=== PATIENT | female | born 1970 | race Caucasian/White ===

== ENCOUNTER 2019-10-17 18:35 | Outpatient (CLI) | payer BC, SELFPAY ==
--- NOTE | ~2019-10-17 | XR_ITS ---
EXAMINATION: XR chest 2V EXAM DATE: 10/17/2019 18:57 INDICATION: Cough. TECHNIQUE: Frontal and lateral projections of the chest obtained and reviewed. There is no prior ber[place] dy for comparison. FINDINGS: The lungs are clear. There are no pleural effusions. The cardiomediastinal silhouette is within normal limits. There is no pneumothorax suspected. The bones and soft tissues are unremarkab le. IMPRESSION: No acute cardiopulmonary findings. Reviewed, dictated and finalized at location A.
== END 2019-10-17 18:36 | disposition home or self-care (01) ==
PROVIDERS: PCP Family Medicine; Visit Provider Physician Assistant
DX: R05 Cough (principal)
CPT/HCPCS: 71046

== ENCOUNTER 2019-12-23 13:42 | Outpatient (CLI) | payer BC, SELFPAY ==
--- NOTE | ~2019-12-23 | MM_ITS ---
MM diag tal implant BI w hollis DATE: 12/23/2019 14:59 INDICATION: Implant rupture TECHNIQUE: Digital ML, MLO and cc Tomosynthesis with composite 2-D views. Implant and implant displac ed views were performed. COMPARISON: None FINDINGS: There are scattered areas of fibroglandular density. Ruptured collapsed right breast implant. Left implant appears unremarkable. No suspicious mass or architectural distortion, malignant calcification, skin thickening or retractio n is detected. IMPRESSION: BI-RADS Category 2: benign: Benign finding Ruptured right breast implant Recommendation: Routine mammographic screening Reviewed, dictated and finalized at Location [facility]. Reviewed, dictated and finalized at location A.
== END 2019-12-23 13:43 | disposition home or self-care (01) ==
LOC: ANHIMG 13:44
PROVIDERS: PCP Family Medicine; Visit Provider Physician Assistant
DX: T85.43XA Leakage of breast prosthesis and implant, initial encounter (principal)
CPT/HCPCS: 77062; 77066; G0279

== ENCOUNTER 2020-02-28 01:18 | Outpatient (CLI) | payer BC, SELFPAY ==
[2020-02-28 18:36] LABS: SARS-CoV-2 RNA PCR Negative
== END 2020-02-28 01:19 | disposition home or self-care (01) ==
LOC: ANHCOVIDDT 01:18
PROVIDERS: Physician Assistant; PCP Family Medicine; Visit Provider Surgery Plastic and Reconstructive Surgery
DX: R05 Cough (principal); Z20.828 Contact with and (suspected) exposure to other viral communicable diseases
CPT/HCPCS: 87635; C9803; U0003

== ENCOUNTER 2020-03-01 08:39 | Day surgery (SDC) | payer OTHER, SELFPAY ==
[2020-02-20 12:58] VITALS: BMI 22.4
[2020-03-01] VITALS (8 sets, daily range): BP systolic 99–123; BP diastolic 49–75; PULSE 60–79; RESP 12–20; TEMP 35.8–36.5; O2SAT 93–100; BMI 22.2
[2020-03-01] MEDS: LACTATED RINGERS 1,000 ML 30 ML IV CONT ×2 (09:23→11:54)
--- NOTE | 2020-03-01 09:57 | WPDHPUPDATE1 ---
History and Physical Update Update Date/Time: 03/01/20 09:57 History and Physical has been reviewed, including an updated exam of the patient. There are NO changes in the patient's condition. Risks, benefits, and alternatives have been discussed and questions answered. Patient agrees to proceed with procedure.
--- NOTE | 2020-03-01 10:13 | PM.PROC ---
Procedure Note - Detailed Date of procedure: 03/01/20 Pre-op diagnosis: Breast Implant Rupture Post-op diagnosis: same Procedure performed: Bilateral breast implant exchange Description of procedure: She is here today for bilateral breast implant exchange. Previously and again today the risks, benefits, alternatives were discussed in extensive detail. I wanted her to be very realistic about the risks involved as well as expectations. We discussed aftercare and what to monitor for. Made sure answered all of her questions to her satisfaction today and consent was obtained. Marked in the preoperative holding area with their verification. The patient was taken to the operating room placed supine on the operating table. Anesthesia was provided by anesthesiology. A surgical time-out was taken. We cleansed the skin and 1% lidocaine and 0.25% Marcaine with epinephrine was used anesthetize as a field block. She was prepped and draped in a standard sterile fashion. Tegaderm nipple Goddard were placed. A 15 blade used to make an incision excising the previous IMF scar. Dissection was continued until the implant was identified. implant was removed. I completed capsulotomy as appropriate. I elevated superficial to the pectoralis major in a dual plane 3 fashion to help with the degree of waterfall deformity she has. She declined a formalized mastopexy. She understands she will still have residual waterfall deformity. Her implants were 425cc saline. Submuscular with no release of inferior border of pectoralis major. Her capsule was very thin and densly adherent to chest wall / pec major. Nothing of concern. No masses. No seroma. Because she was happy with appereance I did not release the pectoralis major. Because her capsule was so thin / adherent to surrounding tissue removal would have required significant injury to pectoralis major / chest wall so it remained in place and I cauterized. I then copiously irrigated with 3 liters of saline solution on TUR tubing and verified a strict hemostasis. Next the use a triple antibiotic and Betadine containing solution to irrigate the pocket. I washed my gloves with the triple antibiotic and Betadine solution. We washed the implant immediately upon opening it with this solution and only opened it when we needed it. Air was removed from the implant which was introduced to the pocket and filled with a saline fill kit. The implant was introduced into the pocket using the funnel. Having verified positioning of the implant this was closed using 2-0 Vicryl followed by 3-0 Monocryl in a running subcuticular 4-0 Monocryl followed by tissue glue. Fluffs, Phani wrap, and surgical bra were placed. Patient was awoke and taken to PACU without difficulty. All instrument sponge counts were correct at the end of the case. Anesthesia: GLMA Surgeon: Ming Amaya MD Estimated blood loss (mL): 5 Drains: No Packing: No Pathology: none sent Complications: No immediate complications Condition: stable Disposition: PACU Findings: Sline 450cc filled to 475c bilatearl. Right REF# [id number] SN [id number] Left REF # [id number] SN [id number]
--- NOTE | 2020-03-01 10:24 | WPDANESEPPF ---
Anes - Initial Pre Proc Eval Procedure: Operation Date: 03/01/20 10:00 Proposed Procedures p Bilateral Breast Implant Exchange - Ming Amaya MD Date/Time: 03/01/20 10:24 Surgeon: Ming Amaya MD Pre Op Diagnosis: Breast Implant Rupture Patient Data Age: 50 Gender: F Height: 5 ft 9 in Weight: 68.3 kg Last Vital Signs Temp 35.8 C L 03/01/20 08:57 Pulse 71 03/01/20 08:57 Resp 12 03/01/20 08:57 BP 114/75 03/01/20 08:57 Pulse Ox 100 03/01/20 08:57 Allergies Allergy/AdvReac Type Severity Reaction Status Date / Time No Known Allergies Allergy Unknown Verified 03/01/20 08:33 Patient hx anesthesia problems: post op nausea/vomiting Family hx anesthesia problems: none PMFSH Past Medical History Medical History Lupus Surgical History Surgical History History of breast augmentation History of cholecystectomy History of elbow surgery left History of hysterectomy History of lumpectomy benign History of partial thyroidectomy left History of repair of anterior cruciate ligament of right knee left History of shoulder surgery Family History Family History Father Acute myocardial infarction Other Family history of type 2 diabetes mellitus Social History Social History Smoking packs per day: 0.5 Smoking cigarettes per day: 10.0 Years smoked: 30 Smoking pack-years: 15.00 Smoking status: Current every day smoker Tobacco type: cigarettes Second hand tobacco smoke exposure: No Alcohol intake: never Substance use: never Substance use type: does not use Living arrangements: with family Gender identity (if verbalized by the patient): Female Sexual Orientation (if Verbalized by the Patient): Straight or Heterosexual Spiritual care concerns: No Anes - Eval Final PreProcedure Day of Procedure 03/01/20 10:24 Patient weight: normal Heart: regular rate and rhythm Lungs: decreased breath sounds Airway: Mallampati scale class II Neurological: alert and oriented Last oral intake: >/= 8 hours ASA classification: II Emergent: no Anesthetic plan: proceed Anesthesia type and monitoring: general LMA and standard monitoring Informed Consent: The patient's anesthetic plan and its attendant risks and benefits were discussed with the patient/family/POA. Questions were solicited and answers provided to the satisfaction of the patient/family/POA.
[2020-03-01] MEDS: ceFAZolin SODIUM 2 GM/20 ML SW SYRINGE IV PUSH (10:33)
[2020-03-01] MEDS: LIDO 1%/EPINEPHRINE 1:100,000 20 ML VIAL 30 ML INFILTRATE (11:02)
--- NOTE | 2020-03-22 07:31 | WPDANESPN ---
Anes - Prog Note Post-Op Date/Time: 03/22/20 07:31 Cardiovascular status: normal Respiratory status: normal Airway patency: baseline Mental status: baseline Post-Op hydration status: normal Vital Signs: Last Vital Signs Temp 36.5 C 03/01/20 11:54 Pulse 60 03/01/20 13:05 Resp 15 03/01/20 13:05 BP 112/74 03/01/20 13:05 Pulse Ox 98 03/01/20 13:05 Pain Score (VAS): 1 Patient Feedback: Patient satisfied with anesthetic care. Other Findings: late entry
== END 2020-03-01 13:33 | disposition home or self-care (01) ==
PROVIDERS: PCP Family Medicine; Visit Provider Surgery Plastic and Reconstructive Surgery
PROC: (CPT 19342; principal; 2020-03-01 10:00)
DX: T85.49XA Other mechanical complication of breast prosthesis and implant, initial encounter (principal)
CPT/HCPCS: 19370; 19340

== ENCOUNTER 2020-03-27 02:07 | Outpatient (CLI) | payer BC, SELFPAY ==
[2020-03-27 17:03] LABS: SARS-CoV-2 RNA PCR Negative
== END 2020-03-27 02:08 | disposition home or self-care (01) ==
LOC: ANHCOVIDDT 02:08
PROVIDERS: PCP Family Medicine; Visit Provider Plastic Surgery
DX: Z01.812 Encounter for preprocedural laboratory examination (principal); Z11.59 Encounter for screening for other viral diseases
CPT/HCPCS: 87635; C9803; U0003

== ENCOUNTER 2020-03-29 01:40 | Day surgery (SDC) | payer BC, SELFPAY ==
[2020-03-21 14:45] VITALS: BMI 22.1
[2020-03-29 10:08] VITALS: BP 111/74; PULSE 68; RESP 20; TEMP 36.3; O2SAT 100
--- NOTE | 2020-03-29 10:28 | WPDHPUPDATE1 ---
History and Physical Update Update Date/Time: 03/29/20 10:28 History and Physical has been reviewed, including an updated exam of the patient. There are NO changes in the patient's condition. Risks, benefits, and alternatives have been discussed and questions answered. Patient agrees to proceed with procedure.
--- NOTE | 2020-03-29 10:54 | P.PNAN_ITS ---
Anes - Initial Pre Proc Eval Procedure: Operation Date: 03/29/20 12:00 Proposed Procedures p Revision Right Trigger Thumb - Javad Mccormack MD Date/Time: 03/29/20 10:54 Surgeon: Javad Mccormack MD Pre Op Diagnosis: right trigger thumb Patient Data Age: 50 Gender: F Height: 5 ft 9 in Weight: 68.04 kg Allergies Allergy/AdvReac Type Severity Reaction Status Date / Time No Known Allergies Allergy Unknown Verified 03/21/20 14:45 Home Medications Medication Instructions Recorded Confirmed Type vitamin B complex [Super B-50 1 cap PO DAILY 03/21/20 03/21/20 History Complex] Patient hx anesthesia problems: none Family hx anesthesia problems: none PMFSH Past Medical History Medical History Lupus Tobacco use Surgical History Surgical History History of breast augmentation History of cholecystectomy History of elbow surgery left History of hysterectomy History of lumpectomy benign History of partial thyroidectomy left History of repair of anterior cruciate ligament of right knee left History of shoulder surgery Family History Family History Father Acute myocardial infarction Other Family history of type 2 diabetes mellitus Social History Social History Smoking packs per day: 0.5 Smoking cigarettes per day: 10.0 Years smoked: 20 Smoking pack-years: 10.00 Smoking status: Current every day smoker Tobacco type: cigarettes Second hand tobacco smoke exposure: No Alcohol intake: never Substance use: never Substance use type: does not use Gender identity (if verbalized by the patient): Female Spiritual care concerns: No Anes - Eval Final PreProcedure Day of Procedure 03/29/20 10:54 Patient weight: normal Heart: regular rate and rhythm Lungs: decreased breath sounds Airway: Mallampati scale class II Neurological: alert and oriented Last oral intake: >/= 8 hours ASA classification: III Emergent: no Anesthetic plan: proceed Anesthesia type and monitoring: general GIVS and standard monitoring Informed Consent: The patient's anesthetic plan and its attendant risks and benefits were discussed with the patient/family/POA. Questions were solicited and answers provided to the satisfaction of the patient/family/POA.
[2020-03-29] MEDS: LACTATED RINGERS 1,000 ML 30 ML IV CONT (10:55)
[2020-03-29] MEDS: LIDO 1%/EPINEPHRINE 1:100,000 20 ML VIAL 7 ML INFILTRATE (12:33)
[2020-03-29 13:00] VITALS: BP 94/55; PULSE 72; RESP 16; O2SAT 98
[2020-03-29 13:30] VITALS: BP 114/57; PULSE 60; RESP 16
[2020-03-29 14:00] VITALS: BP 109/65; PULSE 62; RESP 16
--- NOTE | 2020-03-30 17:16 | PM.PROC ---
Procedure Note - Detailed Date of procedure: 03/30/20 Pre-op diagnosis: right trigger thumb Post-op diagnosis: other (Post operative trigger finger adhesions.) Procedure performed: Exploration of prior trigger thumb with lysis of adhesions. Description of procedure: This patient presents today for exploration of the right trigger thumb site. This was operated several months ago and she has had difficulty ever sense. She does not continue to trigger but there is pain near the incision line she has not responded to therapy nor cortisone injections. The appropriate thumb was marked in the holding area. She was placed supine on the operating table. A time-out was held and confirmed. The extremity was prepped and draped in usual fashion. She was given IV sedation. The digit was blocked with 1% lidocaine with epinephrine. . The tourniquet was inflated to 250 mmHg. A transverse incision was made through the existing scar line. The skin flap was elevated distally and proximally exposing this area quite nicely. I did not find any point of insufficient release of the A1 colten. However the A1 colten had been fairly thick. We explored both digital nerves. Most of her pain and been over the ulnar digital nerve. We found two neurovascular structures on the ulnar side. Both of these were exposed and freed from surrounding scar. I could not discern whether they were nerve or artery They were left intact. We were able to see exposed flexor tendon. The tendon was smooth. There was no nodule. The tendon glided freely. A portion of the 2nd A1 colten sheath was excised. The point of that was to diminish the mass of tissue there. Following that the wound was irrigated and the skin closed with running 5 0 nylon. A small bandage with Coban wrap was applied and she was discharged from the operating room. She had no antibiotics. She has a prescription for hydrocodone . Surgeon: Javad Mccormack MD
== END 2020-03-29 14:30 | disposition home or self-care (01) ==
PROVIDERS: PCP Internal Medicine; Visit Provider Plastic Surgery
PROC: (CPT 26055; principal; 2020-03-29 12:00)
DX: M65.841 Other synovitis and tenosynovitis, right hand (principal); F17.210 Nicotine dependence, cigarettes, uncomplicated
CPT/HCPCS: 26055; A9270; J2250; J2704; J3010; J7120

== ENCOUNTER → 2020-08-28 06:51 | Outpatient (CLI) | payer BC, SELFPAY ==
[2020-08-28 22:50] LABS: SARS-CoV-2 RNA PCR Negative
== END ==
PROVIDERS: PCP Internal Medicine; Visit Provider Internal Medicine
DX: Z20.822 Contact with and (suspected) exposure to COVID-19 (principal)
CPT/HCPCS: C9803; U0003; U0005

== ENCOUNTER 2021-06-07 09:03 | Emergency (ER) | payer BC, SELFPAY ==
[2021-06-07 09:16] VITALS: BP 119/72; PULSE 73; RESP 16; TEMP 37.3; O2SAT 100
--- NOTE | 2021-06-07 09:45 | ED.DENTAL ---
HPI - Dental/Oral General Stated complaint: abcess tooth Time Seen by Provider: 06/07/21 09:39 Source: patient and RN notes reviewed Mode of arrival: ambulatory Limitations: no limitations History of Present Illness HPI Narrative: Patient presents today complaining of left lower dental pain and jaw swelling. States the jaw swelling has been present for the past 2 days. Reports she is afraid to go to the dentist due to COVID-19. She currently rates her pain 2/10 and has been rinsing with salt water. She takes tramadol daily for her rheumatoid arthritis and lupus. Denies shortness of breath or difficulty swallowing. MD Complaint: tooth pain Related Data Home Medications Medication Instructions Recorded Confirmed vitamin B complex [Super B-50 1 cap PO DAILY 03/21/20 03/29/20 Complex] Allergies Allergy/AdvReac Type Severity Reaction Status Date / Time No Known Allergies Allergy Unknown Verified 07/02/20 16:33 Review of Systems Review of Systems: CONSTITUTIONAL: Denies body aches, fever, chills, or sweats. EYES: Denies visual changes, redness, or discharge. ENT: Denies rhinorrhea, congestion, sore throat, or otalgia.+ Tooth pain and jaw swelling CARDIOVASCULAR: Denies chest pain, palpitations, or edema. RESPIRATORY: Denies cough or dyspnea. GASTROINTESTINAL: Denies abdominal pain, nausea, vomiting, or diarrhea. GENITOURINARY: Denies dysuria or hematuria. SKIN: Denies rash, itching, or wounds. MUSCULOSKELETAL: Denies back pain, joint pain, or myalgia. NEUROLOGIC: Denies headache, numbness, tingling, or weakness. PSYCH: Denies depression or anxiety. [facility] Past Medical History Medical History Lupus Rheumatoid arthritis Tobacco use Surgical History Surgical History History of breast augmentation History of cholecystectomy History of elbow surgery left History of hysterectomy History of lumpectomy benign History of partial thyroidectomy left History of repair of anterior cruciate ligament of right knee left History of shoulder surgery Family History Family History Father Acute myocardial infarction Other Family history of type 2 diabetes mellitus Social History Social History Smoking packs per day: 0.5 Smoking cigarettes per day: 10.0 Years smoked: 20 Smoking pack-years: 10.00 Smoking status: Current every day smoker Tobacco type: cigarettes Second hand tobacco smoke exposure: No Alcohol intake: never Substance use: never Substance use type: does not use Gender identity (if verbalized by the patient): Female Sexual Orientation (if Verbalized by the Patient): Straight or Heterosexual Spiritual care concerns: No Comments At time of signature, I have reviewed and agree with nursing past medical, surgical, social and family history unless otherwise noted. Please see nursing chart for further information. There is no relevant family history pertinent to the presenting complaint Exam Narrative: GENERAL: Well-appearing, well-nourished, and in no acute distress. HEAD: Normocephalic, atraumatic. EYES: EOMI. No redness or drainage. Conjunctivae normal. ENT: Mucous membranes pink and moist. Throat normal. Uvula midline. Tooth #22 and 23 ER blackened and severely decayed. The adjacent gumline is erythematous and edematous. The adjacent jaw is mildly edematous and tender to palpation. No obvious periapical abscess. NECK: Normal AROM. CHEST: No respiratory distress. EXTREMITIES: Normal range of motion. No edema. SKIN: Warm, dry, no rash. Capillary refill normal. Normal skin turgor. NEURO: No focal deficits. Alert and oriented x3. Gait steady. PSYCH: Normal affect. No signs of depression or anxiety. Course Vital Signs Vital signs: Vital Signs Temperature 99.1 F 06/07/21 0
== END 2021-06-07 10:02 | disposition home or self-care (01) ==
PROVIDERS: Emergency Provider Nurse Practitioner; PCP Internal Medicine
DX: K04.7 Periapical abscess without sinus (principal); F17.210 Nicotine dependence, cigarettes, uncomplicated; M06.9 Rheumatoid arthritis, unspecified
CPT/HCPCS: 99213; G0463